=== PATIENT | male | born 1980 | race Hispanic/Latino ===

== ENCOUNTER 2021-04-16 14:37 | Outpatient (CLI) | payer SELFPAY ==
[2021-04-17 18:25] LABS: SARS-CoV-2 PCR by NAA DETECTED (NotDetected)
== END 2021-04-16 14:38 | disposition home or self-care (01) ==
LOC: EDBD → LABBT 14:37
PROVIDERS: ATTEND Otolaryngology Plastic Surgery within the Head & Neck
DX: Z01.818 Encounter for other preprocedural examination (principal); U07.1 COVID-19
CPT/HCPCS: 93005; 93010; U0003; U0005

== ENCOUNTER 2021-05-19 10:37 | Day surgery (SDC) | payer OTHER ==
[2021-05-13 12:59] VITALS: BMI 26.6
[2021-05-19] MEDS ORDERED: AFRIN NASAL MIST 15 ML BOT ONE ×2 (11:05→13:08)
[2021-05-19] MEDS ORDERED: PROPOFOL 200 MG/20 ML VIAL ONE (12:41)
[2021-05-19] MEDS ORDERED: Dexamethasone 20 MG/5 ML VIAL ONE (12:41)
[2021-05-19] MEDS ORDERED: Glycopyrrolate 0.2 MG/ML 5 ML SYRINGE ONE (12:41)
[2021-05-19] MEDS ORDERED: Lidocaine 1% PF 5 ML VIAL ONE (12:41)
[2021-05-19] MEDS ORDERED: Rocuronium Bromide 10 MG/ML (10ML VIAL) ONE (12:41)
[2021-05-19] MEDS ORDERED: Ondansetron PF 4 MG/2 ML Vial ONE (12:41)
[2021-05-19] MEDS ORDERED: Xylocaine 1% w/ Epi 1:100K 10 ML VIAL ONE (13:08)
[2021-05-19] MEDS ORDERED: Bacitracin Zinc Ointment 30 gm TUBE ONE (13:08)
[2021-05-19] MEDS ORDERED: Fentanyl 250 MCG/5 ML VIAL ONE (13:14)
[2021-05-19] MEDS ORDERED: Midazolam HCl 2 mg/2 ml Vial ONE (13:14)
[2021-05-19] MEDS ORDERED: Hydrocodone-Acetamin 15 ML UDCUP ONE (15:10)
== END 2021-05-19 16:45 | disposition home or self-care (01) ==
LOC: SDC 10:37
PROVIDERS: ATTEND Otolaryngology Plastic Surgery within the Head & Neck
PROC: 09TL7ZZ Resection of Nasal Turbinate, Via Natural or Artificial Opening (ICD-10-PCS; principal; 2021-05-19)
PROC: 09SM0ZZ Reposition Nasal Septum, Open Approach (ICD-10-PCS; principal; 2021-05-19)
DX: J34.2 Deviated nasal septum (principal); S02.2XXA Fracture of nasal bones, initial encounter for closed fracture; J34.3 Hypertrophy of nasal turbinates
CPT/HCPCS: J1100; J2250; J2405; J2704; J3010